=== PATIENT | female | born 1965 | race Caucasian/White ===

== ENCOUNTER 2017-01-21 17:30 | Inpatient (IN) | payer OTHER ==
[~2017-01-21] VITALS: Ht 160 cm; Wt 90.5 kg
--- NOTE | 2017-01-21 17:53 | NUR ---
PT AMBULATORY TO BED 5 WITH STEADY GAIT
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
--- NOTE | 2017-01-21 18:16 | NUR ---
PT REFUSING IV AND FENTANYL AT THIS TIME
[2017-01-21 18:32] LABS: CHLORIDE SERUM 102 mmol/L (98-107); CREATININE SERUM 0.8 mg/dL (0.6-1.0); GFR1 > 60 mL/min; GLUCOSE SERUM 118 mg/dL (74-106); POTASSIUM SERUM 3.4 mmol/L (3.5-5.1); SODIUM SERUM 137 mmol/L (136-145)
[2017-01-21 18:35] LABS: BASOPHIL % 0.5 % (0-2); PLATELET COUNT 245 x10^3mcL (130-400); RED CELL DISTRIBUTION WIDTH 13.1 % (11.5-14.5)
--- NOTE | 2017-01-21 19:00 | NUR ---
RECEIVED REPORT FROM DAY SHIFT RN PT RESTING, NO SIGN OF DISTRESS NOTED VSS, PT TO BE ADMITTED AWAIT ORDERS AND BED PLACEMENT CONT TO MONITOR
--- NOTE | 2017-01-21 19:11 | NUR ---
REPORT GIVEN TO JEROME SOLER
[2017-01-21] MEDS ORDERED: LOSARTAN POTASS25 M1 PO (19:28)
--- NOTE | 2017-01-21 19:37 | NUR ---
REPORT CALLED TO CHRIS SOLER TO ASSUME CARE OF PT
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
[2017-01-21 19:56] VITALS: BP 151/82
[2017-01-21 20:01] VITALS: Ht 160 cm; Wt 90.5 kg
[2017-01-21 20:05] LABS: MAGNESIUM 2.3 mg/dL (1.8-2.4); PHOSPHOROUS 3.4 mg/dL (2.5-4.9)
[2017-01-21 20:06] LABS: CHOLESTEROL/HDL RATIO 4.7
[2017-01-21 20:17] LABS: FREE T4 1.24 ng/dL (0.76-1.46); T4(THYROXINE) 10.7 ug/dL (4.7-13.3)
[2017-01-21 20:37] LABS: T3 TOTAL 1.12 ng/mL
--- NOTE | 2017-01-21 23:52 | NUR ---
PT IS CURRENTLY ASLEEP WITH EYES CLOSED. NO DISTRESS NOTED. BREATHING EVEN AND UNLABORED. WILL CONT TO MONITOR.
--- NOTE | 2017-01-22 01:59 | NUR ---
ROUNDS MADE. PT IS CURRENTLY ASLEEP AND RESTING WELL IN BED. NO DISTRESS NOTED. NO SOB. BREATHING EVEN AND UNLABORED. WILL CONT TO MONITOR.
--- NOTE | 2017-01-22 03:59 | NUR ---
ROUNDS MADE. PT IS ASLEEP AND RESTING WELL IN BED. NO DISTRESS NOTED. BREATHING EVEN AND UNLABORED. RELAXED FACIAL FEATURES. IV INTACT AND PATENT. WILL CONT TO MONITOR.
[2017-01-22 05:48] VITALS: BP 116/59
--- NOTE | 2017-01-22 06:05 | NUR ---
PT SLEPT PERIODICALLY THROUGHOUT THE SHIFT. NO SOB. NO N/V/D. NO DISTRESS NOTED. BREATHING EVEN AND UNLABORED. ALL NEEDS MET AND ATTENDED. IV INTACT AND PATENT INFUSING WELL. WILL ENDORSE ALL CONTINUITY CARE TO ONCOMING NURSE.
[2017-01-22 07:01] LABS: BASOPHIL % 0.3 % (0-2); PLATELET COUNT 231 x10^3mcL (130-400); RED CELL DISTRIBUTION WIDTH 12.8 % (11.5-14.5)
[2017-01-22 07:18] LABS: CALCIUM 8.4 mg/dL (8.5-10.1); CARBON DIOXIDE 28.3 mmol/L (21-32); CHLORIDE SERUM 107 mmol/L (98-107); CREATININE SERUM 0.8 mg/dL (0.6-1.0); GFR1 > 60 mL/min; GLUCOSE SERUM 84 mg/dL (74-106); MAGNESIUM 2.1 mg/dL (1.8-2.4); PHOSPHOROUS 4.3 mg/dL (2.5-4.9); POTASSIUM SERUM 3.6 mmol/L (3.5-5.1); SODIUM SERUM 143 mmol/L (136-145)
--- NOTE | 2017-01-22 08:00 | NUR ---
A/A/OX4; TELE#13 = SR; HR = 69; DENIED CHEST PAIN NOW. NO RESP DISTRESS ON RA. [facility] AMBULATORY. DENIED ANY PAIN. IVF OF NS 100CC/HR INFUSING WELL TO LAC. IV SITE CLEAN. CALL LIGHT IN REACH.
--- NOTE | 2017-01-22 08:30 | NUR ---
DR. HORNER AND MEDICAL TEAM MADE MORNING ROUND. PLAN OF CARE DISCUSSED WITH PATIENT, INCLUDED WITH DR. ZAVALA, CONVEYOR ATTENDANT CONSULTATION. PATIENT AGREED WITH PLAN OF CARE.
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
[2017-01-22 09:24] LABS: microscopic required? YES; urine erythrocyte NEGATIVE (NEGATIVE)
[2017-01-22 09:25] VITALS: BP 139/50
[2017-01-22 09:29] VITALS: BP 130/61
[2017-01-22 09:32] LABS: AMPHETAMINE QUAL UR NONE DETECTED (NEG <=1000)
--- NOTE | 2017-01-22 14:05 | NUR ---
DR. ZAVALA CAME TO SEE PATIENT.
[2017-01-22] MEDS ORDERED: LIPI10 PO ×2 (14:16→17:56)
[2017-01-22] MEDS ORDERED: PRI20 PO ×2 (14:18→17:56)
[2017-01-22 14:19] VITALS: BP 145/75
[2017-01-22] MEDS ORDERED: LOSARTAN POTASS1 TAB PO ×2 (14:40→17:56)
[2017-01-22 15:42] VITALS: BP 145/75
== END 2017-01-22 16:36 | disposition home or self-care (01) | DRG 392 ==
LOC: ED 17:30 → DU 18:57
PROVIDERS: Emergency Medicine; ADMIT Family Medicine
DX: K21.9 Gastro-esophageal reflux disease without esophagitis (principal); R73.03 Prediabetes; I16.0 Hypertensive urgency; E87.6 Hypokalemia; E78.5 Hyperlipidemia, unspecified; F17.210 Nicotine dependence, cigarettes, uncomplicated; I10 Essential (primary) hypertension; G90.8 Other disorders of autonomic nervous system; Z53.29 Procedure and treatment not carried out because of patient's decision for other reasons; E78.00 Pure hypercholesterolemia, unspecified; M51.36 Other intervertebral disc degeneration, lumbar region; Z90.710 Acquired absence of both cervix and uterus; Z86.73 Personal history of transient ischemic attack (TIA), and cerebral infarction without residual deficits; Z68.35 Body mass index [BMI] 35.0-35.9, adult; Z79.899 Other long term (current) drug therapy
CPT/HCPCS: 82962; 83880; 84439; 97110-GP; 99406; J7030; Q0092